=== PATIENT | male | born 1960 | race African-American/Black ===

== ENCOUNTER 2017-01-01 08:38 | Day surgery (SDC) | payer BC ==
[2016-12-31 15:58] VITALS: BMI 68.6
--- NOTE | 2016-12-31 20:24 | PREOPHP ---
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 PAST MEDICAL HISTORY: DAILY MEDICATIONS: None. MEDICAL CONDITIONS: High blood pressure. DAILY MEDICATIONS: High blood pressure medication. PRIOR SURGERY: Clotting disorders. FAMILY HISTORY: Negative. REVIEW OF SYSTEMS: Negative. HABITS: Alcohol: Social. Tobacco, recreational drugs: None. PHYSICAL EXAMINATION: GENERAL: Well-developed, well-nourished male patient in no acute distress. HEAD: Normocephalic. No masses or deformities. EARS: Ears and tympanic membranes are normal. NOSE: Obstructive septal deviation with turbinate hypertrophy. OROPHARYNX: Clear. NECK: No masses or adenopathy. CHEST: Clear to P and A. HEART: Regular sinus rhythm without murmur. ABDOMEN: Soft. Bowel sounds normal. No masses or megaly. EXTREMITIES: Full range of motion without deformity. NEUROLOGIC: Physiologic. RECTAL: Not done. IMPRESSION: Septal deviation with turbinate hypertrophy. RECOMMENDATION: Admit for surgery. Dictated By: DIMAS VAN MD SC/NTS Conf#: [id number] DID#: [id number]
[~2017-01-01] VITALS: Ht 177.8 cm; Wt 103.0 kg
[2017-01-01] VITALS (9 sets, daily range): BP systolic 140–178; BP diastolic 77–95; PULSE 60–84; RESP 12–18; Ht 177.8 cm; Wt 103.0 kg
[~2017-01-01 08:38] MED LIST: EPHEDrine SULFATE 50 MG/5 ML SYG ONE
[2017-01-01] MEDS ORDERED: LISI10TA2 PO (09:18)
[2017-01-01] MEDS ORDERED: ASPI-664 PO (09:19)
[2017-01-01] MEDS ORDERED: AMLO-147 PO (09:19)
[2017-01-01] MEDS ORDERED: SIMV10TA PO (09:20)
[2017-01-01] MEDS ORDERED: CETI10TA71 PO (09:21)
[2017-01-01] MEDS ORDERED: ROCURONIUM 50 MG INJ ONE (11:19)
[2017-01-01] MEDS ORDERED: PROPOFOL 20 ML ONE (11:19)
[2017-01-01] MEDS ORDERED: MIDAZOLAM 1 MG/ML 2 ML INJ ONE (11:20)
[2017-01-01] MEDS ORDERED: LIDOCAINE 1%/EPI 30 ML INJ ONE (11:33)
[2017-01-01] MEDS ORDERED: COCAINE 4% 4 ML TOP ONE ×2 (11:34→11:53)
[2017-01-01] MEDS ORDERED: hydrALAzine 20 MG INJ ONE (11:53)
[2017-01-01] MEDS ORDERED: LABETALOL HCL 20MG INJ ONE (11:53)
[2017-01-01] MEDS ORDERED: LIDOCAINE 1%/EPI (MDV) 20 ML INJ INJ ONE (11:54)
[2017-01-01] MEDS ORDERED: METOCLOPRAMIDE 10 MG INJ ONE (12:05)
[2017-01-01] MEDS ORDERED: DEXAMETHASONE 4 MG/ML 1 ML INJ ONE (12:05)
[2017-01-01] MEDS ORDERED: KETOROLAC 30 MG INJ ONE (12:05)
[2017-01-01] MEDS ORDERED: ONDANSETRON 4 MG INJ ONE ×2 (12:05→13:01)
[2017-01-01] MEDS ORDERED: GLYCOPYRROLATE 0.4 MG INJ ONE (12:06)
[2017-01-01] MEDS ORDERED: NEOSTIGMINE 3 MG/3 ML SYRINGE ONE (12:06)
[2017-01-01] MEDS ORDERED: ACETAMINOPHEN 1000MG/100ML IV 100 ML ONE (12:06)
[2017-01-01] MEDS ORDERED: BACITRACIN/POLYMYXIN 28.35 GM OINT TOP ONE (12:11)
[2017-01-01] MEDS ORDERED: PHENYLephrine (100 MCG/ML) 5ML SYG ONE (12:22)
[2017-01-01] MEDS ORDERED: BACITRACIN/POLYMYXIN 0.9 GM OINT TOP ONE (12:25)
[2017-01-01] MEDS ORDERED: EPHEDrine SULFATE 50 MG/5 ML SYG IV PRN (12:30)
[2017-01-01] MEDS ORDERED: hydrALAzine 20 MG INJ IV PRN (12:30)
[2017-01-01] MEDS ORDERED: LABETALOL HCL 20MG INJ IV PRN (12:30)
[2017-01-01] MEDS ORDERED: METOCLOPRAMIDE 10 MG INJ IV PRN (12:30)
[2017-01-01] MEDS ORDERED: ONDANSETRON 4 MG INJ IV PRN (12:30)
[2017-01-01] MEDS ORDERED: MEPERIDINE 25 MG INJ IV PRN (12:30)
[2017-01-01] MEDS ORDERED: morphine (1 MG/ML) 10ML SYRINGE IV PRN ×3 (12:30)
[2017-01-01] MEDS ORDERED: DIPHENHYDRAMINE 50 MG INJ IV PRN (12:30)
[2017-01-01] MEDS ORDERED: HYDROmorphONE (0.2 MG/ML) 10ML SYG IV PRN ×3 (12:30)
[2017-01-01] MEDS ORDERED: MEPERIDINE 25 MG INJ ONE (13:01)
[2017-01-01] MEDS ORDERED: HYDROCODONE/APAP (7.5/325) TAB PO PRN (13:08)
--- NOTE | 2017-01-01 15:26 | OPR ---
DATE OF OPERATION: 01/01/2017 PREOPERATIVE DIAGNOSIS: Septal deviation with turbinate hypertrophy. POSTOPERATIVE DIAGNOSIS: Septal deviation with turbinate hypertrophy. PROCEDURE PERFORMED: Septoplasty with turbinate reduction. SURGEON: Jhonny Van MD DESCRIPTION OF PROCEDURE: The patient brought to the operating room under parenteral sedation, gene ral oral endotracheal anesthesia with the patient in the supine position, sterile sheets and drapes applied. Nose anesthetized with 5% cottonoid cocaine and with Xylocaine 1%, epinephrine 1:100,000 i njectable. Bilateral septal deviation with turbinate hypertrophy was noted. The inferior turbinate bones were lightly crushed and outfractured. A left septal hemitransfixion incision was made. Sep jon flaps were elevated exposing the quadrilateral cartilage and the perpendicular plate of the ethm oid and vomer bones. The quadrilateral was detached from the crest to the premaxilla and from the b frank cartilaginous junction. Strips of cartilage were removed inferiorly and posteriorly to correct cartilaginous deviation. A septal spur on the left was mobilized with a mallet and chisel and remov ed with forceps. The septal compartment was then suctioned. The incision closed with interrupted 4 -0 chromic. The nose was packed with 1/2-inch Adaptic, Neosporin, gauze. A drip pad was applied. The patient was awakened and extubated in the operating room, returned to recovery in excellent cond ition. ESTIMATED BLOOD LOSS: Nil. COMPLICATIONS: None. Dictated By: JHONNY VAN MD SC/NTS Conf#: [id number] DID#: [id number]
== END 2017-01-01 14:10 | disposition home or self-care (01) ==
LOC: SDS 08:38
PROVIDERS: ATTEND Otolaryngology Otolaryngology/Facial Plastic Surgery
DX: J34.2 Deviated nasal septum (principal); J34.3 Hypertrophy of nasal turbinates; I10 Essential (primary) hypertension
CPT/HCPCS: 30140; 30520; 88300; J0131; J0360; J1100; J2175; J2250; J2405; J2710; J3010; Z7512; Z7610; J1885; J2370; J2765